=== PATIENT | male | born 1940 | race Caucasian/White ===

== ENCOUNTER 2018-09-17 20:33 | Emergency (ER) | payer MEDICARE, OTHER ==
[2018-09-17] MEDS ORDERED: Acetaminophen/HYDROcodone 325-10 MG Tab PO ONE ×2 (20:34→21:59)
[2018-09-17] MEDS ORDERED: Ketorolac 30 MG/ML SDV IM ONE (21:01)
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
[2018-09-17] MEDS ORDERED: Acetaminophen/HYDROcodone 325-10 MG Tab ONE (22:45)
== END 2018-09-17 22:59 | disposition home or self-care (01) ==
LOC: DL.ED 20:33
DX: M16.11 Unilateral primary osteoarthritis, right hip (principal)
CPT/HCPCS: 73502; 73630; 96372; 99283; A9270; J1885